=== PATIENT | female | born 1980 | race Two or more races ===

== ENCOUNTER 2024-07-01 05:40 | Day surgery (SDC) | payer MEDICAID, SELFPAY ==
--- NOTE | 2024-06-29 07:00 | EKG_ITS ---
[facility] Test Date: 2024-06-29 Pat Name: RAHUL LEWIS Department: Room: - Gender: Female [employer]: [employer] : 1980 Requested By: Noah Mathews Order Number: [id number] Reading MD: Noah Mathews Measurements Intervals [place] Rate: 60 P: 6 CT: 162 QRS: 5 QRSD: 80 T: -5 QT: 396 QTc: 396 Interpretive Statements SINUS RHYTHM No previous ECG available for comparison /[id number]/[id number]
[2024-06-29 08:24] VITALS: BMI 42.0
[2024-06-29 09:37] LABS: Basophils # (Auto) 0.1 Thou/mm3 (0.0-0.2); Basophils % (Auto) 1 % (0-2.5); Eosinophils # (Auto) 0.2 Thou/mm3 (0.0-0.5); Eosinophils % (Auto) 3 % (0-10); Hemoglobin 12.4 g/dL (12.0-16.0); Immature Granulocytes % (Auto) 0 % (0-0); Immature Granulocytes Auto 0.02 Thou/mm3 (0.00-0.00); Lymphocytes # (Auto) 1.7 Thou/mm3 (1.0-4.8); Lymphocytes % (Auto) 26 % (10-50); Mean Corpuscular HGB Conc 32.6 g/dl (31.0-37.0); Mean Corpuscular Hemoglobin 27.6 pg (25.0-35.0); Mean Corpuscular Volume 84 fL (80-100); Monocytes # (Auto) 0.3 Thou/mm3 (0.0-0.8); Monocytes % (Auto) 5 % (0-12); Neutrophils # (Auto) 4.2 Thou/mm3 (1.8-7.7); Neutrophils % (Auto) 65 % (37-80); Nucleated Red Blood Cell % 0 /100 WBC (0); Platelet Count 315 Thou/mm3 (140-440); RDW Standard Deviation 40.7 fL (36.4-46.3); White Blood Count 6.4 Thou/mm3 (3.6-11.0)
[2024-06-29 09:45] LABS: HCG Qualitative,Urine Negative
[2024-06-29 09:46] LABS: INR 0.9 (0.9-1.3); Partial Thromboplastin Time 24.2 Seconds (22.0-36.0); Prothrombin Time 10.1 Seconds (9.0-12.2)
[2024-06-29 09:58] LABS: Alanine Aminotransferase 9 U/L (10-49); Albumin, Serum 4.3 gm/dL (3.5-5.0); Albumin/Globulin Ratio 1.8 (1.2-2.2); Alkaline Phosphatase 44 U/L (46-116); Anion Gap 5 (7-16); Aspartate Amino Transferase 11 U/L (0-34); BUN/Creatinine Ratio 28 Ratio (12-20); Bilirubin,Total 0.4 mg/dL (0.3-1.2); Blood Urea Nitrogen 17 mg/dL (9-23); Calcium 9.1 mg/dL (8.3-10.6); Calcium (Corrected) 9.1 mg/dL (8.5-10.1); Carbon Dioxide 29.5 mMol/L (20.0-31.0); Chloride 103 mMol/L (98-107); Creatinine (Component) 0.6 mg/dL (0.6-1.3); Estimated Creatinine Clearance 138.4 mL/min (>60); Globulin 2.4 gm/dL (2.3-3.5); Glucose 146 mg/dL (74-106); Osmolality,Calculated 278 (275-295); Potassium 3.9 mMol/L (3.4-5.1); Sodium 137 mMol/L (136-145); Total Protein 6.7 gm/dL (5.7-8.2); eGFR > 60 See Note
[2024-07-01] VITALS (8 sets, daily range): BP systolic 117–127; BP diastolic 65–80; PULSE 67–78; RESP 14–18; TEMP 36.1–36.4; O2SAT 95–100; BMI 44.3
[2024-07-01] MEDS: RINGERS LACTATED 1000 ML 1,000 ML 20 ML IV (06:43)
--- NOTE | 2024-07-01 09:17 | ESOP_ITS ---
Date of Procedure 07/01/24 Pre Op Diagnosis Symptomatic varicose veins left lower extremity Post Op Diagnosis Same as preop diagnosis Procedure 1-Radiofrequency endovenous ablation of the greater saphenous vein left leg 2-Radiofrequency endovenous ablation of the anterior saphenous vein left leg 3-Varicose vein excisions left leg Findings The greater saphenous vein was successfully ablated with no evidence of thrombus in the saphenofemoral junction or common femoral vein The anterior saphenous vein was successfully ablated with no evidence of thrombus in the saphenofemoral junction or common femoral vein All marked varicose veins were successfully removed or disrupted Procedure Description With the patient in the standing position all varicose veins in the left leg to removed were carefully marked with a sharpie pen. The patient was then brought to the operating room and general anesthesia was induced. The left lower extremity sterilely prepped and draped. A timeout was performed. The vein ablation procedure was performed first by mapping out the course of the greater saphenous vein between the knee and the saphenofemoral junction. This point it was observed that the patient also has quite a large anterior saphenous vein which will also be ablated in its course was mapped out as well. The greater saphenous vein was then accessed at the level of the knee with a 21- gauge mini stick needle and ultrasound guidance followed by a mini stick wire then a small sheath and then an 035 guidewire and ultimately a 7 Surinamese sheath introducer was placed. At this point the anterior saphenous vein was also accessed in a similar fashion and the small sheath was left in place for larger sheath access later in the procedure. The ablation catheter was then brought to the field prepped placed into the greater saphenous vein with the tip carefully positioned 3 to 5 cm distal to the saphenofemoral junction. Tumescent anesthesia was instilled along the course of the vein to be treated. The tip was once again ensured to be 3 to 5 cm from the saphenofemoral junction and then under direct ultrasound compression the catheter was activated with 2 cycles proximally and 4 additional cycles down the leg. The saphenofemoral junction was then inspected for patency compressibility and augmentation as was the common femoral vein and there was no evidence of clot. The ablation catheter was then removed and pressure was held until hemostasis was obtained. The 7 Surinamese sheath was then reassembled and the 035 guidewire was placed into the anterior saphenous vein with a small sheath removed and the 7 Surinamese sheath introducer was placed. The ablation catheter was then introduced into the anterior saphenous vein again with the catheter tip positioned 3 to 5 cm from the saphenofemoral junction. Tumescent anesthesia was instilled along the treatment length of the vein. Catheter tip position was once again ensured to be 3 to 5 cm from the saphenofemoral junction then under direct ultrasound compression the catheter was activated with 2 cycles proximally and then 2 additional cycles down the thigh. The saphenofemoral ju nction was inspected for compressibility and augmentation and flow with no evidence of thrombus in either saphenous junction or common femoral vein. The cath and sheath were then removed and pressure was held for hemostasis was obtained. The varicose vein excisions were then performed by making a small skin norberto with a #11 blade and all the marked areas then bluntly enlarging these incisions with a mosquito clamp and grasping and then and sequentially excising or disrupting the veins. When all marked veins have been treated hemostasis was obtained and the wounds and the leg was cleaned then Steri-Strips were placed to reapproximate the incisions. Sterile gauze and Kerlix were then placed followed by an Jamie wrap and the patient woke well from anesthesia was moved to recovery in stable condition Anesthesia other (Laryngeal mask anesthesia) Pathology / specimen Other (Varicose veins left leg) Estimated Blood Loss 75 Condition Stable Disposition PACU Surgeon Noah Espinoza MD Surgical Staff Operation Date: 07/01/24 07:30 Case Staff Anesthesiologist: Reece Kilgore RN First Assistant: Suzanne Waldrop
--- NOTE | 2024-07-01 09:27 | SUR.PHASEI ---
0994 Patient arrived to recovery sleeping comfortably in [facility], able to arouse with verbal prompting then patient drifts back to sleep, breathing unlabored, vital signs stable, denies pain, dressing intact to left leg; steri-strips, abd, kerlix roll, bias roll, no bleeding noted, bilateral dorsalis pedis pulses present when palpated, patient has good circultation to left lower extremity; skin color normal for patient and warm to touch, lung sounds clear upon auscultation, report received from Dr. Kilgore and Reji LAURA
--- NOTE | 2024-07-01 10:34 | SUR.PHASEII ---
1034 Patient meets discharge criteria from recovery, awake and alert, breathing unlabored, vital signs stable, denies pain, dressing intact; no bleeding noted, patient drinking 7up; tolerating well, denies nausea, patient assisted with dressing into her clothing by her , discharge instructions given with the assistance of the telephone twine reeling machine operator Jona ID#[id number] to patient and patients , signed discharge instructions. Patient given all her belongings prior to discharge, transported via wheelchair and left in a private vehicle.
== END 2024-07-01 10:34 | disposition home or self-care (01) ==
PROVIDERS: Anesthesiology; PCP Family Medicine; Referring Provider Surgery Vascular Surgery; Visit Provider Surgery Vascular Surgery
PROC: (CPT 36475; principal; 2024-07-01 07:30)
DX: I83.812 Varicose veins of left lower extremity with pain (principal); Z01.810 Encounter for preprocedural cardiovascular examination
CPT/HCPCS: 36475; 37766; 36415; 80048; 80053; 81025; 85025; 85610; 85730; 93005; A4217; A4649; C1888; C1894; J0461; J0690; J1885; J2250; J2405; J2704; J2765; J3010; J7050; J7120

== ENCOUNTER 2024-07-29 05:45 | Day surgery (SDC) | payer MEDICAID, SELFPAY ==
[2024-07-27 08:40] VITALS: BMI 43.0
[2024-07-27 09:44] LABS: Basophils # (Auto) 0.1 Thou/mm3 (0.0-0.2); Basophils % (Auto) 1 % (0-2.5); Eosinophils # (Auto) 0.2 Thou/mm3 (0.0-0.5); Eosinophils % (Auto) 3 % (0-10); Hematocrit 36.9 % (36.0-46.0); Hemoglobin 12.1 g/dL (12.0-16.0); Immature Granulocytes % (Auto) 0 % (0-0); Immature Granulocytes Auto 0.02 Thou/mm3 (0.00-0.00); Lymphocytes # (Auto) 1.7 Thou/mm3 (1.0-4.8); Lymphocytes % (Auto) 25 % (10-50); Mean Corpuscular HGB Conc 32.8 g/dl (31.0-37.0); Mean Corpuscular Hemoglobin 28.1 pg (25.0-35.0); Mean Corpuscular Volume 86 fL (80-100); Monocytes # (Auto) 0.4 Thou/mm3 (0.0-0.8); Monocytes % (Auto) 5 % (0-12); Neutrophils # (Auto) 4.5 Thou/mm3 (1.8-7.7); Neutrophils % (Auto) 66 % (37-80); Nucleated Red Blood Cell % 0 /100 WBC (0); Platelet Count 346 Thou/mm3 (140-440); RDW Standard Deviation 40.3 fL (36.4-46.3); White Blood Count 6.8 Thou/mm3 (3.6-11.0)
[2024-07-27 09:59] LABS: HCG,Qualitative Serum Negative; Partial Thromboplastin Time 24.5 Seconds (22.0-36.0); Prothrombin Time 10.7 Seconds (9.0-12.2)
[2024-07-27 10:19] LABS: Alanine Aminotransferase 9 U/L (10-49); Albumin, Serum 4.5 gm/dL (3.5-5.0); Albumin/Globulin Ratio 1.7 (1.2-2.2); Alkaline Phosphatase 45 U/L (46-116); Anion Gap 8 (7-16); Aspartate Amino Transferase 14 U/L (0-34); BUN/Creatinine Ratio 16 Ratio (12-20); Bilirubin,Total 0.6 mg/dL (0.3-1.2); Blood Urea Nitrogen 11 mg/dL (9-23); Calcium 9.4 mg/dL (8.3-10.6); Calcium (Corrected) 9.4 mg/dL (8.5-10.1); Carbon Dioxide 27.2 mMol/L (20.0-31.0); Chloride 104 mMol/L (98-107); Creatinine (Component) 0.7 mg/dL (0.6-1.3); Estimated Creatinine Clearance 120.2 mL/min (>60); Globulin 2.6 gm/dL (2.3-3.5); Glucose 154 mg/dL (74-106); Osmolality,Calculated 279 (275-295); Sodium 139 mMol/L (136-145); Total Protein 7.1 gm/dL (5.7-8.2); eGFR > 60 See Note
[2024-07-29] VITALS (8 sets, daily range): BP systolic 106–128; BP diastolic 62–78; PULSE 54–79; RESP 13–20; TEMP 36.4–36.8; O2SAT 95–100; BMI 46.5
--- NOTE | 2024-07-29 09:02 | SUR.PHASEI ---
0902 Patient arrived to recovery resting comfortably in [facility], on oxygen 8L via oxy mask with an oral airway in place, breathing unlabored, vital signs stable, dressing intact to right lower extremity; steri-strips, abd, kerlix roll, evan wraps, no bleeding noted, patient has good circultation to right lower extremity; skin color normal for patient and warm to touch, bilateral dorsalis pedis pulses present when palpated, report received from Jefferson LAURA and Dr. Wood
--- NOTE | 2024-07-29 09:03 | PD.SUROPNT ---
Date of Procedure 07/29/24 Pre Op Diagnosis Symptomatic varicose veins right leg Post Op Diagnosis Same as preop diagnosis Procedure Radiofrequency endovenous ablation of the greater saphenous vein right lower extremity Varicose vein excisions right lower extremity through 23 separate incisions Findings Successful ablation of the greater saphenous vein with no evidence of thrombus in the saphenofemoral junction or common femoral vein Successful removal or disruption of all marked varicose veins Procedure Description With the patient standing in the preop area all varicose veins to be removed were carefully marked with a sharpie pen. The patient was then brought to the operating room and general anesthesia was induced the vein ablation procedure was done first by marking out the course of the greater saphenous vein between the knee and the saphenofemoral junction on the medial thigh. Ultrasound was used to identify the greater saphenous vein just above the knee and a small skin norberto was made with a #11 blade and a 21-gauge mini stick needle was used with direct ultrasound guidance to access the greater saphenous vein. A guidewire was placed followed by 7 Portuguese sheath introducer. The ablation catheter was then brought to the field prepped and placed into the patient but would not pass beyond the mid thigh. Careful examination with ultrasound showed that there was a discontinuity in the vein and therefore the vein was reaccessed above this point successfully and the sheath was moved into that position. The catheter was then carefully positioned with the tip 3 to 5 cm distal to the saphenofemoral junction and tumescent anesthesia was instilled in the skin and subcutaneous tissues surrounding the vein. Catheter position was once again ensured to be 3 to 5 cm distal to the saphenofemoral junction and under direct ultrasound compression the catheter was activated with 2 cycles proximally and 1 additional cycle down to the point of the sheath entry. The saphenofemoral junction was then inspected and found to be compressible with good augmentation and flow and no evidence of thrombus in either the saphenofemoral junction or the common femoral vein. Catheter was removed and pressure was held till hemostasis was obtained. Attention was then turned to the marked veins where a small skin norberto was made with a #11 blade and a small mosquito clamp was used to enlarge the incision and then the veins were grasped and excised or disrupted sequentially. Hemostasis was then obtained and the excision sites and the limb was washed, dried and Steri-Strips were placed to reapproximate the incisions. The leg was then wrapped with gauze, Kerlix and an Jamie wrap. The patient woke up from anesthesia was moved to recovery in stable condition Anesthesia other (Laryngeal mask anesthesia) Implants None Pathology / specimen Other (Varicose veins right lower extremity) Estimated Blood Loss 100 Condition Stable Disposition PACU Surgeon Noah Espinoza MD Surgical Staff Operation Date: 07/29/24 07:30 Case Staff Anesthesiologist: Carlos Wood RN First Assistant: Yadira Hebert
--- NOTE | 2024-07-29 10:19 | SUR.PHASEII ---
1019 Patient meets discharge criteria from recovery, awake and alert, breathing unlabored, vital signs stable, denies pain, dressing intact; no bleeding noted, patient drinking water; tolerating well, denies nausea, patient assisted with dressing into her clothing by her daughter, discharge instructions given to patient and patients daughter with the assistance of the telephone courtroom deputy or calendar clerk Ori ID#[id number], daughter signed discharge instructions. Patient given all her belongings prior to discharge, transported via wheelchair and left in a private vehicle.
== END 2024-07-29 10:19 | disposition home or self-care (01) ==
PROVIDERS: Anesthesiology; PCP Family Medicine; Referring Provider Surgery Vascular Surgery; Visit Provider Surgery Vascular Surgery
PROC: (CPT 36475; principal; 2024-07-29 07:30)
DX: I83.811 Varicose veins of right lower extremity with pain (principal)
CPT/HCPCS: 36475; 36415; 80053; 84703; 85025; 85610; 85730; A4217; C1769; C1888; C1894; J0690; J1100; J1885; J2250; J2405; J2704; J2710; J3010; J3490; J7050; J1596

== ENCOUNTER 2024-08-10 08:30 | Day surgery (SDC) | payer MEDICAID, SELFPAY ==
--- NOTE | 2024-08-07 21:37 | ESHP_ITS ---
RE: RAHUL LEWIS : 1980 DATE OF ADMISSION: 08/10/2024 HISTORY OF PRESENT ILLNESS: This is a 44-year-old female, who speaks only Lithuanian. She was seen in June for a mass over her left upper arm. The patient has had this mass for the past few years, but in the past year, she was having increasing pain. She was advised observation because it was not giving her symptoms initially. Now, she is experiencing pain over the mass. Therefore, she wants it taken out. Other medical problem consists of diabetes and cholesterol. 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 She is also awaiting evaluation for varicose veins. PHYSICAL EXAMINATION: GENERAL: Examination revealed an obese female, who is about 5 feet 3 inches tall, weighing 238 pounds with BMI of 42.43. VITAL SIGNS: Temperature was 97.3, pulse 80, and BP was 114/71. HEENT: Examination of the head is normal. Eyes, ears, nose, and throat are normal. NECK: Normal. CHEST: Revealed good breath sounds on both sides. HEART: Sinus rhythm with no murmurs. ABDOMEN: Unremarkable. EXTREMITIES: Examination of the upper extremity on the left side revealed a well-circumscribed soft tissue mass on the outer aspect of the left upper arm. This measures about 5 cm in diameter and appears to be a lipoma. LABORATORY DATA: The patient had an ultrasound of this mass, which revealed subcutaneous nonvascular structure measuring 4.9 cm. IMPRESSION: 1. Benign lipoma of the left upper arm. 2. Morbid obesity. 3. Type 2 diabetes mellitus. 4. Hyperlipidemia. COURSE OF ACTION: I advised the patient to undergo excision of this mass under monitored anesthesia. The patient wants to have this done under general anesthesia in the hospital. She will be scheduled at [facility]. DT: 21:13:36 TT: 21:35:00 Ref: [id number] - TID: [id number]
[2024-08-09 10:01] VITALS: BMI 42.3
[2024-08-09 11:50] LABS: Basophils % (Auto) 1 % (0-2.5); Eosinophils # (Auto) 0.1 Thou/mm3 (0.0-0.5); Eosinophils % (Auto) 2 % (0-10); Hemoglobin 12.2 g/dL (12.0-16.0); Immature Granulocytes % (Auto) 1 % (0-0); Immature Granulocytes Auto 0.04 Thou/mm3 (0.00-0.00); Lymphocytes # (Auto) 1.8 Thou/mm3 (1.0-4.8); Lymphocytes % (Auto) 22 % (10-50); Mean Corpuscular Hemoglobin 27.7 pg (25.0-35.0); Mean Corpuscular Volume 84 fL (80-100); Monocytes # (Auto) 0.2 Thou/mm3 (0.0-0.8); Monocytes % (Auto) 3 % (0-12); Neutrophils % (Auto) 73 % (37-80); Nucleated Red Blood Cell % 0 /100 WBC (0); Platelet Count 377 Thou/mm3 (140-440); White Blood Count 8.2 Thou/mm3 (3.6-11.0)
[2024-08-09 12:01] LABS: Alanine Aminotransferase < 7 U/L (10-49); Albumin, Serum 4.5 gm/dL (3.5-5.0); Albumin/Globulin Ratio 1.6 (1.2-2.2); Alkaline Phosphatase 46 U/L (46-116); Anion Gap 7 (7-16); Aspartate Amino Transferase 15 U/L (0-34); BUN/Creatinine Ratio 18 Ratio (12-20); Bilirubin,Total 0.4 mg/dL (0.3-1.2); Blood Urea Nitrogen 14 mg/dL (9-23); Calcium 9.7 mg/dL (8.3-10.6); Calcium (Corrected) 9.7 mg/dL (8.5-10.1); Carbon Dioxide 27.6 mMol/L (20.0-31.0); Chloride 105 mMol/L (98-107); Creatinine (Component) 0.8 mg/dL (0.6-1.3); Estimated Creatinine Clearance 108.2 mL/min (>60); Globulin 2.9 gm/dL (2.3-3.5); Glucose 153 mg/dL (74-106); Osmolality,Calculated 282 (275-295); Potassium 4.5 mMol/L (3.4-5.1); Sodium 140 mMol/L (136-145); Total Protein 7.4 gm/dL (5.7-8.2); eGFR > 60 See Note
[2024-08-09 12:11] LABS: HCG,Qualitative Serum Negative
[2024-08-09 12:26] LABS: Partial Thromboplastin Time 24.8 Seconds (22.0-36.0); Prothrombin Time 10.5 Seconds (9.0-12.2)
--- NOTE | 2024-08-09 14:05 | SUR.PREOP ---
Voice message left for pt to come in tomorrow at 0830 for surgery.
[2024-08-10] VITALS (8 sets, daily range): BP systolic 103–127; BP diastolic 63–73; PULSE 62–76; RESP 12–18; TEMP 36.4–36.6; O2SAT 97–100; BMI 42.7
[2024-08-10] MEDS: RINGERS LACTATED 1000 ML 1,000 ML 20 ML IV (09:29)
--- NOTE | 2024-08-10 11:47 | ESOP_ITS ---
Date of Procedure 08/10/24 Pre Op Diagnosis Soft tissue mass left upper arm Post Op Diagnosis Same, lipoma Procedure Excision of the soft tissue mass over the left upper arm Findings Patient had a 5 cm mass in the subcutaneous tissue which appeared to be a lipoma Procedure Description Patient was brought to the operating room and she underwent LMA and general anesthesia. The left upper arm and shoulder was prepped with ChloraPrep solution and draped in a sterile manner. Timeout is performed. The made incision over the mass longitudinally parallel to the upper arm. Using Jarad retractors I dissected out the mass which turned out to be a lipoma. It was removed intact. Some of the bleeding points were coagulated with cautery. Sub cutaneous tissue was approximated with 3-0 chromic on the skin by 4-0 Monocryl. Dressing was applied with 4 x 4 and Adaptic and compression. Patient tolerated procedure well. Anesthesia other Pathology / specimen Other (Mass from the left upper arm) Estimated Blood Loss 20 Surgeon Manuel Ryan MD Surgical Staff Operation Date: 08/10/24 10:30 <No data on this case meets the specified criteria>
--- NOTE | 2024-08-10 12:57 | SUR.PHASEII ---
1257: Pt. AAOx4, vitals stable, breathing unlabored, no complaint of pain or nausea, dressing to left shoulder CDI, no active bleed noted, pt. tolerated sips of soda well, pt. ambulated to wheelchair with steady gait and no assist, no complications. Gave discharge instructions to the pt. and her ride using efficiency expert both verbalized understanding and had no further questions. Pt. left with all personal belongings.
--- NOTE | 2024-08-10 12:57 | SUR.PHASEII ---
1257: Pt. AAOx4, vitals stable, breathing unlabored, no complaint of pain or nausea, dressing to left shoulder CDI, no active bleed noted, pt. tolerated sips of soda well, pt. ambulated to wheelchair with steady gait and no assist, no complications. Gave discharge instructions to the pt. and her ride using in file operator both verbalized understanding and had no further questions. Pt. left with all personal belongings.
--- NOTE | 2024-08-10 13:33 | SUR.PHASEI ---
1157: Pt. AAOx4, vitals stable, breathing unlabored, no complaint of pain or nausea, dressing to left shoulder CDI, no active bleed noted, report received from MD Kilgore and Drake LAURA.
--- NOTE | 2024-08-10 14:03 | SUR.PHASEII ---
1257: Pt. AAOx4, vitals stable, breathing unlabored, no complaint of pain or nausea, dressing to left shoulder CDI, no active bleed noted, pt. tolerated sips of soda well, pt. ambulated to wheelchair with steady gait and no assist, no complications. Gave discharge instructions to the pt. and her ride using senior budget analyst both verbalized understanding and had no further questions. Pt. left with all personal belongings.
== END 2024-08-10 12:57 | disposition home or self-care (01) ==
PROVIDERS: Anesthesiology; PCP Family Medicine; Referring Provider Surgery; Visit Provider Surgery
PROC: (CPT 11406; principal; 2024-08-10 10:15)
DX: D17.22 Benign lipomatous neoplasm of skin and subcutaneous tissue of left arm (principal); E11.9 Type 2 diabetes mellitus without complications; E66.01 Morbid (severe) obesity due to excess calories; E78.5 Hyperlipidemia, unspecified; Z68.41 Body mass index [BMI] 40.0-44.9, adult
CPT/HCPCS: 11406; 36415; 80053; 84703; 85025; 85610; 85730; A4217; A4649; J1885; J2250; J2405; J2704; J2765; J3010; J7120